=== PATIENT | female | born 1985 | race Caucasian/White ===

== ENCOUNTER 2023-07-26 05:43 | Emergency (ER) | payer MEDICARE, OTHER, SELFPAY ==
[2023-07-26 05:45] VITALS: BP 140/96
[2023-07-26 06:17] VITALS: BMI 26.3
--- NOTE | 2023-07-26 07:30 | ED.GENMED ---
History of Present Illness
General
Chief Complaint: Abdominal Symptoms
Source: patient
Exam Limitations: none
Time Seen by Provider: 07/26/23 06:58
Travel History
Have you had any contact with someone who has COVID-19?: No
Do you have any symptoms of coronavirus? Fever > 100 degrees, chills, cough, shortness of breath, sore throat, loss of taste or smell, muscle aches, or headache?: No
History of Present Illness
History of Present Illness:
37-year-old female who presents with epigastric abdominal pain. The patient states that she has a history of which she was told was a mild gastroparesis. She had eaten dinner and then vomited last night around 9 PM. She states that is not
completely typical for her. That occasionally occurs. She admits that she then woke up in [place] with burning epigastric pain. She states it is nothing like she is ever felt before. She does have a history of migraines. Patient states it
feels like there is hot lava dripping down her insides. No further nausea or vomiting. No diarrhea. No melena or hematochezia. Does have IBS and reports that she often has both constipation and diarrhea off-and-on
Past History
Past History
ED Past Medical History: Asthma, Cancer (Cervical CA), Fibromyalgia, Psychiatric (Anxiety, Depression) and Other (Gallstones, UTI, Kidney stones , Splenomegaly, Ulcers, Williamson, Pancreatitis, Diana syndrome, migraines, gastroparesis)
ED Past Surgical History: Cholecystectomy, Orthopedic (Carpal tunnel, Shoulder surgery) and Other (Hernia repair)
Social History
Tobacco: Non-smoker
Alcohol: Occasional
Drug: None
Personal:
Living: with family
Employment: Employed
Family History
Family History: Negative Early CAD, CAD or Sudden
Phy Exam
Physical Exam
Physical Exam:
CONSTITUTIONAL Patient alert and oriented to person, place and time. Well-appearing. Vital signs reviewed.
HEAD atraumatic, normocephalic.
EYES eyelids normal to inspection, Pupils equally round and reactive to light, Extraocular muscles intact, Conjunctiva normal, Sclera normal.
NECK normal range of motion, Trachea midline, no jugular venous distention.
RESPIRATORY CHEST No respiratory distress noted, Chest expansion equal, Bilateral breath sounds clear.
CARDIOVASCULAR regular rate and rhythm, Heart sounds normal.
ABDOMEN moderate epigastric tenderness, bowel sounds normal. No distention.
BACK normal inspection, no obvious deformities
UPPER EXTREMITY range of motion normal, Motor strength normal, no cyanosis, no edema.
LOWER EXTREMITY range of motion normal, Motor strength normal, no cyanosis, no edema.
NEURO Speech normal, No focal motor deficits, Olivia coma scale 15, Memory normal, Cranial Nerves intact to screening exam.
SKIN skin warm, dry, and normal in color.
PSYCHIATRIC patient oriented to person place and time, Normal affect.
Course
Orders/Labs/Results
Orders:
Orders
07/26/23 07:30
Pantoprazole [Protonix IV] 40 mg IV NOW STA
Sucralfate Suspension [Carafate Suspension] 1 gm PO NOW STA
Test Result ONCE
07/26/23 07:39
Complete Blood Count/With Diff Urgent
Comprehensive Metabolic Panel Urgent
HCG, Serum Qualitative Screen Urgent
Lipase Urgent
07/26/23 09:30
Morphine Sulfate 4 mg IV NOW STA
Ondansetron Injectable [Zofran] 4 mg IV NOW STA
Abnormal Lab Results
07/26/23
07:39
RBC 4.09 L 10^6/uL
(4.20-5.40)
Hct 35.4 L %
(37.0-47.0)
MCH 32.3 H pg
(27.0-31.0)
MCHC 37.3 H g/dL
(33.0-37.0)
RDW 14.6 H %
(11.5-14.5)
Chloride 110 H mmol/L
(98-107)
Total Bilirubin 2.0 H mg/dl
(0.2-1.3)
07/26/23 07:39
07/26/23 07:39
Vital Signs
Initial and Last Documented VS:
Initial Vital Signs
Temp Pulse Resp BP Pulse Ox
98.2 F 90 22 140/96 100
07/26/23 05:45 07/26/23 05:45 07/26/23 05:45 07/26/23 05:45 07/26/23 05:45
Last Documented Vital Signs
Temp Pulse Resp BP Pulse Ox
98.2 F 84 18 109/61 100
07/26/23 05:45 07/26/23 08:45 07/26/23 08:45 07/26/23 08:45 07/26/23 08:45
MDM/Problems Addressed
Differential Diagnosis Includes:
Duodenitis, pancreatitis, gastritis
MDM/Problems Addressed:
Epigastric abdominal pain
*Pulse Oximetry
Patient hypoxic: no
*Clinical Implementation Specialist Interpretation
Rate: normal
Interpretation: normal
Rhythm: sinus
*Critical Care Note
Total Time (30-74mins, 75-104mins- exclusive of procedures): Not Applicable
Data Reviewed
Further Testing Considered But Not Given:
Consider CT imaging but abdomen benign
Patient Management
Escalation/DeEscalation of care consider admission/obs:
On reevaluation patient feels a little bit better. Still little bit discomfort. Gastritis as labs are reassuring and abdomen is quite benign on exam do not feel CT imaging is warranted. Will provide PPI twice daily and Carafate. Also recommended
clear liquid diet for the next 24 hours
ED Attending Note
-
Portions of this chart may have been created with voice recognition software.� Occasional wrong word or��sound alike� substitutions may have occurred due to the inherent limitations of voice recognition software.
Discharge Plan
Departure
Patient Disposition: Home (Routine Discharge)
Date of Disposition: 07/26/23
Time of Disposition: 09:32
Patient with high blood pressure during this ER visit?: No
Discharge Problem:
Abdominal pain, epigastric, Gastritis
Instructions: Gastritis, Clear Liquid Diet, Abdominal Pain
Prescriptions:
New
pantoprazole [Protonix] 40 mg tablet,delayed release (DR/EC)
40 mg PO BID Qty: 60 0RF
Rx Instructions:
Please take 30 minutes prior to eating or drinking anything in the morning.
sucralfate [Carafate] 100 mg/mL suspension
10 ml PO QID Qty: 400 0RF
No Action
oxycodone 5 MG tablet
5 mg PO Q6HPRN PRN (Reason: severe pain) 4 Days Qty: 12 0RF
Referrals:
Jaye Mohamud MD [Family Provider] -
Activity Restrictions/Additional Instructions:
Please stick to a bland diet as discussed. Please see your doctor in the next 3 to 5 days for follow-up and reevaluation. If symptoms persist, follow-up with a sprinkler installer and possible endoscopy may be necessary. Return immediately for
intractable vomiting, fevers, vomiting blood, worsening pain or any other concerns.
Interventions
Interventions:
*Risk Screen - Suicide Last Done: 07/26/23 05:45
*General Assessment Last Done: 07/26/23 07:33
*Neglect/Abuse Screening Last Done: 07/26/23 05:45
ED- Fall Risk Assessment Last Done: 07/26/23 06:17
*ED COVID-19 Vaccine History Last Done: 07/26/23 07:33
BO-Gagbtp-Sfogihdhtg Assessment Last Done: 07/26/23 06:17
[2023-07-26] MEDS: CARAFATE SUSPENSION 1 GM PO (07:37)
[2023-07-26] MEDS: PROTONIX IV 40 MG IV (07:38)
[2023-07-26 07:46] VITALS: BP 106/77
[2023-07-26 07:50] LABS: % Basophils 0.6 % (0-2); % Eosinophils 1.8 % (0-6); % Immature Granulocytes 0.3 % (0-0.5); % Monocytes 6.3 % (1.7-9.3); Absolute Eosinophils 0.1 10^3/uL (0-0.7); Absolute Lymphocytes 1.5 10^3/uL (1.2-3.4); Absolute Monocytes 0.4 10^3/uL (0.1-0.6); Absolute Neutrophils 4.7 10^3/uL (1.4-6.5); Hematocrit 35.4 % (37.0-47.0); Hemoglobin 13.2 g/dL (12.0-16.0); Mean Corp Hgb Conc. 37.3 g/dL (33.0-37.0); Mean Corpuscular Hgb 32.3 pg (27.0-31.0); Mean Corpuscular Volume 86.6 fL (81.0-99.0); Mean Platelet Volume 10.2 fL (7.4-10.4); Nucleated Red Blood Cells % 0 %; Platelet Count 187 10^3/uL (130-400); Red Blood Cell Count 4.09 10^6/uL (4.20-5.40); Red Cell Dist. Width 14.6 % (11.5-14.5); White Blood Cell Count 6.8 10^3/uL (4.8-10.8)
[2023-07-26 07:58] LABS: HCG, Serum Qualitative Screen Negative
[2023-07-26 08:01] LABS: ALT (SGPT) 18 U/L (0-35); AST (SGOT) 22 U/L (14-36); Albumin 4.4 g/dl (3.5-5.0); Alkaline Phosphatase 55 U/L (38-126); Blood Urea Nitrogen 15 mg/dl (7-17); Calcium 8.9 mg/dl (8.4-10.2); Carbon Dioxide 22 mmol/L (22-30); Chloride 110 mmol/L (98-107); Estimated Creatinine Clearance 93 ml/min; Glucose 95 mg/dl (70-99); Lipase 135 U/L (23-300); Potassium 3.9 mmol/L (3.5-5.1); Sodium 136 mmol/L (135-145); Total Protein 6.8 g/dl (6.3-8.2); eGFR > 60.00
[2023-07-26 08:45] VITALS: BP 109/61
[2023-07-26] MEDS: ZOFRAN 4 MG IV (09:37)
[2023-07-26] MEDS: MORPHINE SULFATE 4 MG IV (09:38)
[2023-07-26 10:22] VITALS: BP 103/66
== END 2023-07-26 10:10 | disposition home or self-care (01) ==
LOC: EMR 05:43
PROVIDERS: EMERGENCY PHYSICIAN Emergency Medicine; FAMILY PHYSICIAN Emergency Medicine
DX: K29.70 Gastritis, unspecified, without bleeding (principal); R10.9 Unspecified abdominal pain; R10.13 Epigastric pain
CPT/HCPCS: 99284; 96374; 96375 ×2; 80053; 83690; 84703; 85025

== ENCOUNTER → 2023-09-03 13:17 | Outpatient (REF) | payer MEDICARE, OTHER, SELFPAY | LOC: HWRAD 13:17 | PROVIDERS: ATTENDING PHYSICIAN Obstetrics & Gynecology; FAMILY PHYSICIAN Emergency Medicine | DX: R10.2 Pelvic and perineal pain (principal) | CPT/HCPCS: 76830; 76856 ==

== ENCOUNTER → 2023-11-03 14:13 | Outpatient (REF) | payer MEDICARE, OTHER, SELFPAY | LOC: RAD 14:13 | PROVIDERS: ATTENDING PHYSICIAN Otolaryngology; FAMILY PHYSICIAN Emergency Medicine | DX: Q31.3 Laryngocele (principal) | CPT/HCPCS: 70491; Q9967 ==

== ENCOUNTER 2023-12-17 08:16 | Outpatient (RCR) | payer MEDICARE, OTHER, SELFPAY | END 2023-12-17 23:59 | disposition home or self-care (01) | LOC: RPT 08:16 | PROVIDERS: ATTENDING PHYSICIAN Obstetrics & Gynecology; FAMILY PHYSICIAN Emergency Medicine | DX: N30.10 Interstitial cystitis (chronic) without hematuria (principal); N39.3 Stress incontinence (female) (male); Z73.6 Limitation of activities due to disability; M62.81 Muscle weakness (generalized); R10.2 Pelvic and perineal pain; R27.8 Other lack of coordination | CPT/HCPCS: 97162; 97530 ==

== ENCOUNTER 2024-01-11 13:02 | Outpatient (RCR) | payer MEDICARE, OTHER, SELFPAY | END 2024-01-11 23:59 | disposition home or self-care (01) | LOC: RPT 13:02 | PROVIDERS: ATTENDING PHYSICIAN Obstetrics & Gynecology; FAMILY PHYSICIAN Emergency Medicine | DX: N30.10 Interstitial cystitis (chronic) without hematuria (principal); N39.3 Stress incontinence (female) (male); Z73.6 Limitation of activities due to disability | CPT/HCPCS: 97140; 97530 ==

== ENCOUNTER 2024-02-01 14:57 | Emergency (ER) | payer MEDICARE, OTHER, SELFPAY ==
[2024-02-01 14:59] VITALS: BP 128/86
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
[2024-02-01] MEDS: TORADOL 60 MG IM (15:37)
[2024-02-01] MEDS: VALIUM 5 MG PO (15:37)
[2024-02-01 16:45] VITALS: BP 118/92
--- NOTE | 2024-02-01 16:45 | EDRN ---
Reviewed discharge instructions with patient. Verbalized understanding. Ambulated with steady gait to the lobby.
== END 2024-02-01 16:45 | disposition home or self-care (01) ==
LOC: EMR 14:57
PROVIDERS: EMERGENCY PHYSICIAN Student in an Organized Health Care Education/Training Program; FAMILY PHYSICIAN Emergency Medicine
DX: M54.12 Radiculopathy, cervical region (principal); G43.909 Migraine, unspecified, not intractable, without status migrainosus; M79.7 Fibromyalgia; J45.909 Unspecified asthma, uncomplicated; F41.9 Anxiety disorder, unspecified; F32.A Depression, unspecified; E80.4 Gilbert syndrome; K31.84 Gastroparesis; Z85.41 Personal history of malignant neoplasm of cervix uteri; Z87.440 Personal history of urinary (tract) infections; Z87.442 Personal history of urinary calculi; Z90.49 Acquired absence of other specified parts of digestive tract
CPT/HCPCS: 99284; 96372; 72050

== ENCOUNTER 2024-02-22 13:06 | Outpatient (RCR) | payer MEDICARE, OTHER, SELFPAY | END 2024-02-22 23:59 | disposition home or self-care (01) | LOC: RPT 13:06 | PROVIDERS: ATTENDING PHYSICIAN Obstetrics & Gynecology; FAMILY PHYSICIAN Emergency Medicine | DX: N39.3 Stress incontinence (female) (male) (principal) | CPT/HCPCS: 97140; 97530 ==

== ENCOUNTER 2024-03-11 16:45 | Emergency (ER) | payer MEDICARE, OTHER, SELFPAY ==
[2024-03-11 16:49] VITALS: BP 146/108
[2024-03-11 20:07] VITALS: BP 113/75
[2024-03-11 20:26] VITALS: BMI 27.2
--- NOTE | 2024-03-11 20:41 | ED.GENMED ---
History of Present Illness
General
Chief Complaint: Nasal Problem
Source: patient
Exam Limitations: none
Time Seen by Provider: 03/11/24 20:30
History of Present Illness
History of Present Illness:
This is a 38 year old female that comes in with c/o feeling like she has a sinus infection. States that her daughter was sick with bronchitis and she normally gets sick about 2 days after here. States that it has been 2 days and now she has pressure
behind her eyes and her head hurts. States that she feels that her sinus are full and that she has some post nasal drip. This is affecting her Asthma and her chest feels tight. States that she did just have a Septoplasty and she was going to call
the doctor but they had closed already. States that she has been hot and cold, chest tightness/SOB, and occasionally dizzy. Denies any fever, chills, chest pain, abd pain, nausea, vomiting, diarrhea, headache, urinary burning.
Past History
Past History
ED Past Medical History: Asthma, Cancer (Cervical CA), Fibromyalgia, Psychiatric (Anxiety, Depression) and Other (Gallstones, UTI, Kidney stones, UTI, Splenomegaly, Ulcers, Green, Pancreatitis, Paauilo syndrome, migraines, gastroparesis, Numbness
arms and legs, )
ED Past Surgical History: Cholecystectomy, Orthopedic (Carpal tunnel, Shoulder surgery) and Other (Hernia repair, Septoplasty)
Social History
Tobacco: Non-smoker
Alcohol: Occasional
Drug: None
Personal:
Living: with family
Employment: Employed
Family History
Family History: Negative Early CAD, CAD or Sudden
Review of Systems
Review of Systems
All Other Systems: ROS reviewed and negative except as documented in HPI and ROS
Constitutional: Reports other (Feels hot and cold); Denies fever or chills
EENT: Reports other (Sinus pressure)
Respiratory: Reports trouble breathing (Chest feels tight)
Cardiac: Reports no symptoms; Denies chest pain
ABD/GI: Reports no symptoms; Denies abdominal pain, nausea, vomiting or diarrhea
: Reports no symptoms; Denies dysuria, frequency or urgency
Musculoskeletal: Reports no symptoms
Skin: Reports no symptoms
Neurological: Reports dizzy (Occasional); Denies headache
Psychiatric: Reports no symptoms
Phy Exam
General Physical Exam
General Presentation: well appearing and no apparent distress
General age: appears stated age
General Skin: warm and dry
General Habitus: normal
General Mental: alert
General Hydration: appears well hydrated
ENT Exam
ENT Exam: TM's normal, pharynx normal, neck supple and other (Left septum suture noted)
Eye Exam
Eye Exam: EOMI
Cardiovascular Exam
Cardiovascular Exam: regular rate/rhythm, no edema, no murmur and normal peripheral pulses
Pulmonary Exam
Pulmonary Exam: lungs clear, no respiratory distress, no rales, chest non tender, no crackles, no rhonchi, no wheezing and no cough
Musculoskeletal Exam
Musculoskeletal Exam: full ROM and no edema
Skin Exam
Skin Exam: normal color, warm/dry, no rash and no petechia
Psychiatric Exam
Psychiatric Exam: normal mood/affect
Course
Orders/Labs/Results
Orders:
Orders
03/11/24 16:52
EKG [Electrocardiogram (*1)] Urgent
Reason for Study: Shortness of Breath
EKG- Treatment ONCE
03/11/24 20:40
Azithromycin [Zithromax] 500 mg PO NOW STA
03/11/24 20:40
Prednisone [Deltasone] 40 mg PO NOW STA
Vital Signs
Initial and Last Documented VS:
Initial Vital Signs
Temp Pulse Resp BP Pulse Ox
98.0 F 89 17 146/108 97
03/11/24 16:49 03/11/24 16:49 03/11/24 16:49 03/11/24 16:49 03/11/24 16:49
Last Documented Vital Signs
Temp Pulse Resp BP Pulse Ox
97.9 F 82 17 113/75 98
03/11/24 20:07 03/11/24 20:07 03/11/24 16:49 03/11/24 20:07 03/11/24 20:07
MDM/Problems Addressed
Differential Diagnosis Includes:
Sinus infection, Asthma
MDM/Problems Addressed:
This is a 38 year old female that comes in with c/o feeling like she has a sinus infection. States that she has some post nasal drip and pressure behind her eyes. States that she always gets sick 2 days after her daughter is sick and she has
Bronchitis.
Explained to patient that her Lungs are clear. State that she just feels tight. Will place patient on Zithromax and give her steroids for 3 days. Patient to call the surgeon who did the septoplasty for follow up. Will discharge home.
Chronic conditions affecting care: Asthma
Acute Exacerbation and/or Progression of Chronic Illness: Asthma
*Pulse Oximetry
Patient hypoxic: no
*EKG
Interpreted by ED Provider?: NA
Rate: EKG- N/A
*Bargeman Interpretation
Rate: Bargeman- N/A
*Critical Care Note
Total Time (30-74mins, 75-104mins- exclusive of procedures): Not Applicable
ED Attending Note
-
Portions of this chart may have been created with voice recognition software.� Occasional wrong word or��sound alike� substitutions may have occurred due to the inherent limitations of voice recognition software.
Discharge Plan
Departure
Patient Disposition: Home (Routine Discharge)
Date of Disposition: 03/11/24
Time of Disposition: 20:50
Patient with high blood pressure during this ER visit?: No
Condition: Good
Covid-19: Not Applicable
Discharge Problem:
Sinusitis, Asthma
Instructions: Asthma, Adult ED, Sinusitis, Adult ED
Prescriptions:
New
prednisone 20 mg tablet
40 mg PO DAILY Qty: 6 0RF
azithromycin [Zithromax] 250 mg tablet
250 mg PO DAILY Qty: 4 0RF
No Action
oxycodone 5 MG tablet
5 mg PO Q6HPRN PRN (Reason: severe pain) 4 Days Qty: 12 0RF
pantoprazole [Protonix] 40 mg tablet,delayed release (DR/EC)
40 mg PO BID Qty: 60 0RF
Rx Instructions:
Please take 30 minutes prior to eating or drinking anything in the morning.
sucralfate [Carafate] 100 mg/mL suspension
10 ml PO QID Qty: 400 0RF
methylprednisolone [Medrol (Delfino)] 4 mg tablets,dose pack
4 mg PO DIRECTED Qty: 21 0RF
diazepam [Valium] 5 mg tablet
5 mg PO BID PRN (Reason: muscle spasm) Qty: 8 0RF
Referrals:
Jaye Mohamud MD [Family Provider] -
Activity Restrictions/Additional Instructions:
As discussed, your lungs are clear at this time. You may use your inhaler [id number] as needed. You have had 2 prescription sent to your Pharmacy. The first is Zithromax 250mg for the next 4 days as you have been given your first dose here. The second
is for Prednisone for the next 3 days. Please take as directed. Follow up with the ENT specialist that did your surgery. IF YOU HAVE ANY OTHER CONCERNS PLEASE RETURN TO THE EMERGENCY ROOM.
Interventions
Interventions:
*Risk Screen - Suicide Last Done: 03/11/24 16:49
*General Assessment Last Done: 03/11/24 20:26
*Neglect/Abuse Screening Last Done: 03/11/24 20:26
ED- Fall Risk Assessment Last Done: 03/11/24 20:26
*ED COVID-19 Vaccine History Last Done: 03/11/24 20:26
ED-EENT Assessment Last Done: 03/11/24 20:28
Discharge Date and Time
Print Language: ARMENIAN
[2024-03-11] MEDS: DELTASONE 40 MG PO (20:49)
[2024-03-11] MEDS: ZITHROMAX 500 MG PO (20:50)
[2024-03-11 20:52] VITALS: BP 126/78
== END 2024-03-11 21:01 | disposition home or self-care (01) ==
LOC: EMR 16:45
PROVIDERS: EMERGENCY PHYSICIAN Emergency Medicine; FAMILY PHYSICIAN Emergency Medicine
DX: J32.9 Chronic sinusitis, unspecified (principal); J45.909 Unspecified asthma, uncomplicated
CPT/HCPCS: 99283; 93005

== ENCOUNTER 2024-03-21 13:08 | Outpatient (RCR) | payer MEDICARE, OTHER, SELFPAY | END 2024-03-21 23:59 | disposition home or self-care (01) | LOC: RPT 13:08 | PROVIDERS: ATTENDING PHYSICIAN Obstetrics & Gynecology; FAMILY PHYSICIAN Emergency Medicine | DX: N30.10 Interstitial cystitis (chronic) without hematuria (principal); N39.3 Stress incontinence (female) (male); M62.81 Muscle weakness (generalized); R10.2 Pelvic and perineal pain; R27.8 Other lack of coordination; Z73.6 Limitation of activities due to disability | CPT/HCPCS: 97140; 97530 ==

== ENCOUNTER 2024-04-11 13:06 | Outpatient (RCR) | payer MEDICARE, OTHER, SELFPAY | END 2024-04-11 23:59 | disposition home or self-care (01) | LOC: RPT 13:06 | PROVIDERS: ATTENDING PHYSICIAN Obstetrics & Gynecology; FAMILY PHYSICIAN Emergency Medicine | DX: N30.10 Interstitial cystitis (chronic) without hematuria (principal); N39.3 Stress incontinence (female) (male); Z73.6 Limitation of activities due to disability; M62.81 Muscle weakness (generalized); R10.2 Pelvic and perineal pain; R27.8 Other lack of coordination | CPT/HCPCS: 97140; 97530 ==

== ENCOUNTER 2024-04-18 13:03 | Outpatient (RCR) | payer MEDICARE, OTHER, SELFPAY | END 2024-04-18 23:59 | disposition home or self-care (01) | LOC: RST 13:03 | PROVIDERS: ATTENDING PHYSICIAN Otolaryngology; FAMILY PHYSICIAN Emergency Medicine | DX: M62.89 Other specified disorders of muscle (principal); K21.9 Gastro-esophageal reflux disease without esophagitis; R49.0 Dysphonia | CPT/HCPCS: 92507; 92524 ==

== ENCOUNTER 2024-04-29 16:56 | Outpatient (RCR) | payer MEDICARE, OTHER, SELFPAY | END 2024-04-29 23:59 | disposition home or self-care (01) | LOC: RST 16:56 | PROVIDERS: ATTENDING PHYSICIAN Otolaryngology; FAMILY PHYSICIAN Emergency Medicine | DX: M62.89 Other specified disorders of muscle (principal); K21.9 Gastro-esophageal reflux disease without esophagitis; R49.0 Dysphonia | CPT/HCPCS: 92507 ==

== ENCOUNTER → 2024-05-03 12:00 | Outpatient (REF) | payer MEDICARE, OTHER, SELFPAY | LOC: DHSLP 12:00 | PROVIDERS: ATTENDING PHYSICIAN Internal Medicine Critical Care Medicine; FAMILY PHYSICIAN Emergency Medicine | DX: G47.33 Obstructive sleep apnea (adult) (pediatric) (principal); R06.83 Snoring | CPT/HCPCS: 95800 ==

== ENCOUNTER 2024-05-09 13:03 | Outpatient (RCR) | payer MEDICARE, OTHER, SELFPAY | END 2024-05-09 23:59 | disposition home or self-care (01) | LOC: RPT 13:03 | PROVIDERS: ATTENDING PHYSICIAN Obstetrics & Gynecology; FAMILY PHYSICIAN Emergency Medicine | DX: N30.10 Interstitial cystitis (chronic) without hematuria (principal); N39.3 Stress incontinence (female) (male); Z73.6 Limitation of activities due to disability; M62.81 Muscle weakness (generalized); R10.2 Pelvic and perineal pain; R27.8 Other lack of coordination | CPT/HCPCS: 97140; 97530 ==

== ENCOUNTER 2024-06-22 11:21 | Outpatient (RCR) | payer MEDICARE, OTHER, SELFPAY | END 2024-06-22 23:59 | disposition home or self-care (01) | LOC: RST 11:21 | PROVIDERS: ATTENDING PHYSICIAN Otolaryngology; FAMILY PHYSICIAN Emergency Medicine | DX: M62.89 Other specified disorders of muscle; R49.0 Dysphonia; K21.9 Gastro-esophageal reflux disease without esophagitis | CPT/HCPCS: 92507 ==

== ENCOUNTER 2024-06-24 06:13 | Outpatient (RCR) | payer MEDICARE, OTHER, SELFPAY | END 2024-06-24 23:59 | disposition home or self-care (01) | LOC: RPT 06:13 | PROVIDERS: ATTENDING PHYSICIAN Obstetrics & Gynecology; FAMILY PHYSICIAN Emergency Medicine | DX: N30.10 Interstitial cystitis (chronic) without hematuria (principal); N39.3 Stress incontinence (female) (male); Z73.6 Limitation of activities due to disability; M62.81 Muscle weakness (generalized); R10.2 Pelvic and perineal pain; R27.8 Other lack of coordination | CPT/HCPCS: 97140; 97530 ==

== ENCOUNTER 2024-07-14 10:39 | Outpatient (RCR) | payer MEDICARE, OTHER, SELFPAY | END 2024-07-14 23:59 | disposition home or self-care (01) | LOC: RPT 10:39 | PROVIDERS: ATTENDING PHYSICIAN Obstetrics & Gynecology; FAMILY PHYSICIAN Emergency Medicine | DX: N30.10 Interstitial cystitis (chronic) without hematuria (principal); N39.3 Stress incontinence (female) (male); Z73.6 Limitation of activities due to disability; M62.81 Muscle weakness (generalized); R10.2 Pelvic and perineal pain; R27.8 Other lack of coordination | CPT/HCPCS: 97140; 97530 ==

== ENCOUNTER 2024-07-14 10:52 | Outpatient (RCR) | payer MEDICARE, OTHER, SELFPAY | END 2024-07-14 23:59 | disposition home or self-care (01) | LOC: RST 10:52 | PROVIDERS: ATTENDING PHYSICIAN Otolaryngology; FAMILY PHYSICIAN Emergency Medicine | DX: R49.0 Dysphonia (principal); M62.89 Other specified disorders of muscle; K21.9 Gastro-esophageal reflux disease without esophagitis | CPT/HCPCS: 92507 ==

== ENCOUNTER 2024-08-01 13:02 | Outpatient (RCR) | payer MEDICARE, OTHER, SELFPAY | END 2024-08-01 23:59 | disposition home or self-care (01) | LOC: RPT 13:02 | PROVIDERS: ATTENDING PHYSICIAN Obstetrics & Gynecology; FAMILY PHYSICIAN Emergency Medicine | DX: N30.10 Interstitial cystitis (chronic) without hematuria (principal); N39.3 Stress incontinence (female) (male); Z73.6 Limitation of activities due to disability; M62.81 Muscle weakness (generalized); R10.2 Pelvic and perineal pain; R27.8 Other lack of coordination | CPT/HCPCS: 97110; 97140; 97530 ==

== ENCOUNTER 2024-09-12 13:07 | Outpatient (RCR) | payer MEDICARE, OTHER, SELFPAY | END 2024-09-12 23:59 | disposition home or self-care (01) | LOC: RPT 13:07 | PROVIDERS: ATTENDING PHYSICIAN Obstetrics & Gynecology; FAMILY PHYSICIAN Emergency Medicine | DX: N30.10 Interstitial cystitis (chronic) without hematuria (principal); N39.3 Stress incontinence (female) (male); Z73.6 Limitation of activities due to disability; M62.81 Muscle weakness (generalized); R10.2 Pelvic and perineal pain; R27.8 Other lack of coordination | CPT/HCPCS: 97014; 97110; 97140; 97530 ==

== ENCOUNTER 2024-09-15 17:14 | Emergency (ER) | payer MEDICARE, OTHER, SELFPAY ==
[2024-09-15 17:32] VITALS: BP 135/98
--- NOTE | 2024-09-15 17:38 | ED.GENMED ---
History of Present Illness
General
Chief Complaint: Headache
Time Seen by Provider: 09/15/24 17:38
History of Present Illness
History of Present Illness:
TIME OF INITIAL ENCOUNTER: 5:40 PM
HPI: Patient presents with migraine type of headache. This is associated with photophobia and phonophobia. She has associated with nausea. This started yesterday morning and symptoms persist despite taking Relafen. She had been using Botox which
had been helping in the past. She denies any other neurologic symptoms.
EXAM:
GENERAL: Appears photophobic and somewhat uncomfortable
HEENT: Moist oral mucosa
CARDIOVASCULAR: No murmurs, borderline tachycardic heart rate, regular rhythm, No chest wall tenderness
PULMONARY: No respiratory distress, breath sounds are clear and equal
ABDOMEN: Soft with no peritoneal signs, no tenderness
NEUROLOGIC: Excellent strength all extremities, no coordination deficits
PSYCHIATRIC: Appropriate mental status, normal insight and judgement
EXTREMITIES: Nontender, no edema, moves all extremities equally
SKIN: No rash, no lesions
NUMBER AND COMPLEXITY OF PROBLEMS ADDRESSED AT THE ENCOUNTER
� Chronic conditions affecting care: Migraines, asthma, GERD, cervical cancer, anxiety/depression
� Acute Exacerbation and/or Progression of Chronic Illness: This is an acute but recurring problem
� Differential Diagnosis includes: Exacerbation of migraine, highly doubt serious intracranial pathology, tension headache
AMOUNT AND/OR COMPLEXITY OF DATA TO BE REVIEWED AND ANALYZED
� I performed an independent evaluation of and my interpretation is:
EKG:
CT:
X-rays:
Laboratory Studies:
Other:
� Review of other/old records: I reviewed records, she has had other ED visits but has not been in the emergency department since 2018 related to a migraine visit
� Clinical information was obtained by an independent historian: I spoke to the at bedside
� Prescriptions/Medications Considered but not given:
� Further testing considered but not performed: Labs and imaging not indicated at this time
RISK OF COMPLICATIONS AND/OR MORBIDITY OR MORTALITY OF PATIENT MANAGEMENT
� Social determinants of health affecting care: Lives at home with family
� Discussion with other providers:
� Escalation of care including admission/observation vs risk of discharge considered: The patient was given Reglan with Benadryl along with Toradol and fluids.
ANY OTHER UPDATES:
6:45 PM: I reassessed the patient and she feels improved and comfortable with going home after meds given.
Past History
Past History
ED Past Medical History: Asthma, Cancer (Cervical CA), Fibromyalgia, Psychiatric (Anxiety, Depression) and Other (Gallstones, UTI, Kidney stones, UTI, Splenomegaly, Ulcers, [place], Pancreatitis, [place] syndrome, migraines, gastroparesis, Numbness
arms and legs, )
ED Past Surgical History: Cholecystectomy, Orthopedic (Carpal tunnel, Shoulder surgery) and Other (Hernia repair, Septoplasty)
Social History
Tobacco: Non-smoker
Alcohol: Occasional
Drug: None
Personal:
Living: with family
Employment: Employed
Family History
Family History: Negative Early CAD, CAD or Sudden
Phy Exam
Physical Exam
Physical Exam:
See HPI
Course
Orders/Labs/Results
Orders:
Orders
09/15/24 17:48
0.9% Sodium Chloride 1000 ml [Nss] 1,000 ml IV BOLUS
Diphenhydramine [Benadryl] 25 mg IV NOW STA
Ketorolac [Toradol] 15 mg IV NOW STA
Metoclopramide [Reglan] 10 mg IM NOW STA
09/15/24 18:10
Metoclopramide [Reglan] 10 mg IV NOW STA
Vital Signs
Initial and Last Documented VS:
Initial Vital Signs
Temp Pulse Resp BP Pulse Ox
36.9 C 114 18 135/98 98
09/15/24 17:32 09/15/24 17:32 09/15/24 17:32 09/15/24 17:32 09/15/24 17:32
Last Documented Vital Signs
Temp Pulse Resp BP Pulse Ox
36.9 C 114 18 135/98 98
09/15/24 17:32 09/15/24 17:32 09/15/24 17:32 09/15/24 17:32 09/15/24 17:32
*Critical Care Note
Total Time (30-74mins, 75-104mins- exclusive of procedures): Not Applicable
ED Attending Note
-
Portions of this chart may have been created with voice recognition software.� Occasional wrong word or��sound alike� substitutions may have occurred due to the inherent limitations of voice recognition software.
Discharge Plan
Departure
Patient Disposition: Home (Routine Discharge)
Date of Disposition: 09/15/24
Time of Disposition: 18:52
Patient with high blood pressure during this ER visit?: Yes
Discharge Problem:
Migraine
Instructions: Migraines (DC), BLOOD PRESSURE
Prescriptions:
No Action
oxycodone 5 MG tablet
5 mg PO Q6HPRN PRN (Reason: severe pain) 4 Days Qty: 12 0RF
pantoprazole [Protonix] 40 mg tablet,delayed release (DR/EC)
40 mg PO BID Qty: 60 0RF
Rx Instructions:
Please take 30 minutes prior to eating or drinking anything in the morning.
sucralfate [Carafate] 100 mg/mL suspension
10 ml PO QID Qty: 400 0RF
methylprednisolone [Medrol (Delfino)] 4 mg tablets,dose pack
4 mg PO DIRECTED Qty: 21 0RF
diazepam [Valium] 5 mg tablet
5 mg PO BID PRN (Reason: muscle spasm) Qty: 8 0RF
prednisone 20 mg tablet
40 mg PO DAILY Qty: 6 0RF
azithromycin [Zithromax] 250 mg tablet
250 mg PO DAILY Qty: 4 0RF
Activity Restrictions/Additional Instructions:
We gave you Reglan with Benadryl along with Toradol. I recommend no driving tonight. Follow-up with your primary care doctor. Return here if worse or other concerns.
Interventions
Interventions:
*Risk Screen - Suicide Last Done: 09/15/24 18:10
*General Assessment Last Done: 09/15/24 18:10
*Neglect/Abuse Screening Last Done: 09/15/24 18:10
*ED COVID-19 Vaccine History Last Done: 09/15/24 17:32
ED- Neurological Assessment Last Done: 09/15/24 18:10
Discharge Date and Time
Print Language: RWANDAN
[2024-09-15] MEDS: NSS 1000 IV (18:06)
[2024-09-15] MEDS: BENADRYL 25 MG IV (18:07)
[2024-09-15] MEDS: TORADOL 15 MG IV (18:09)
[2024-09-15] MEDS: REGLAN 10 MG IV (18:11)
== END 2024-09-15 19:03 | disposition home or self-care (01) ==
LOC: EMR 17:14
PROVIDERS: EMERGENCY PHYSICIAN Emergency Medicine; FAMILY PHYSICIAN Emergency Medicine
DX: G43.909 Migraine, unspecified, not intractable, without status migrainosus (principal); J45.909 Unspecified asthma, uncomplicated; M79.7 Fibromyalgia; F41.9 Anxiety disorder, unspecified; Z85.41 Personal history of malignant neoplasm of cervix uteri; Z90.49 Acquired absence of other specified parts of digestive tract
CPT/HCPCS: 99282; 96374; 96375; 96372; 96361

== ENCOUNTER 2024-10-07 13:01 | Outpatient (RCR) | payer MEDICARE, OTHER, SELFPAY | END 2024-10-07 23:59 | disposition home or self-care (01) | LOC: RPT 13:01 | PROVIDERS: ATTENDING PHYSICIAN Obstetrics & Gynecology; FAMILY PHYSICIAN Emergency Medicine | DX: N30.10 Interstitial cystitis (chronic) without hematuria (principal); N39.3 Stress incontinence (female) (male); Z73.6 Limitation of activities due to disability; M62.81 Muscle weakness (generalized); R10.2 Pelvic and perineal pain; R27.8 Other lack of coordination | CPT/HCPCS: 97110; 97140 ==

== ENCOUNTER 2024-11-07 13:13 | Outpatient (RCR) | payer MEDICARE, OTHER, SELFPAY | END 2024-11-07 23:59 | disposition home or self-care (01) | LOC: RPT 13:13 | PROVIDERS: ATTENDING PHYSICIAN Obstetrics & Gynecology; FAMILY PHYSICIAN Emergency Medicine | DX: N30.10 Interstitial cystitis (chronic) without hematuria (principal); N39.3 Stress incontinence (female) (male); Z73.6 Limitation of activities due to disability; M62.81 Muscle weakness (generalized); R10.2 Pelvic and perineal pain; R27.8 Other lack of coordination | CPT/HCPCS: 97110; 97140; 97530 ==

== ENCOUNTER 2024-12-15 11:24 | Outpatient (RCR) | payer MEDICARE, OTHER, SELFPAY | END 2024-12-15 23:59 | disposition home or self-care (01) | LOC: RPT 11:24 | PROVIDERS: ATTENDING PHYSICIAN Obstetrics & Gynecology; FAMILY PHYSICIAN Emergency Medicine | DX: N30.10 Interstitial cystitis (chronic) without hematuria (principal); N39.3 Stress incontinence (female) (male); Z73.6 Limitation of activities due to disability; M62.81 Muscle weakness (generalized); R10.2 Pelvic and perineal pain; R27.8 Other lack of coordination | CPT/HCPCS: 97110; 97140; 97530 ==

== ENCOUNTER 2025-01-16 14:03 | Outpatient (RCR) | payer MEDICARE, OTHER, SELFPAY | END 2025-01-16 23:59 | disposition home or self-care (01) | LOC: RPT 14:03 | PROVIDERS: ATTENDING PHYSICIAN Obstetrics & Gynecology; FAMILY PHYSICIAN Emergency Medicine | DX: N30.10 Interstitial cystitis (chronic) without hematuria (principal); N39.3 Stress incontinence (female) (male); Z73.6 Limitation of activities due to disability; M62.81 Muscle weakness (generalized); R10.2 Pelvic and perineal pain; R27.8 Other lack of coordination | CPT/HCPCS: 97110; 97140; 97530 ==

== ENCOUNTER 2025-02-10 11:25 | Outpatient (RCR) | payer MEDICARE, SELFPAY | END 2025-02-10 23:59 | disposition home or self-care (01) | LOC: RPT 11:25 | PROVIDERS: ATTENDING PHYSICIAN Obstetrics & Gynecology; FAMILY PHYSICIAN Emergency Medicine | DX: N30.10 Interstitial cystitis (chronic) without hematuria (principal); N39.3 Stress incontinence (female) (male); Z73.6 Limitation of activities due to disability; M62.81 Muscle weakness (generalized); R10.2 Pelvic and perineal pain; R27.8 Other lack of coordination | CPT/HCPCS: 97110; 97140; 97530 ==

== ENCOUNTER 2025-04-05 19:22 | Emergency (ER) | payer MEDICARE, SELFPAY ==
[2025-04-05 19:25] VITALS: BP 116/83
[2025-04-05 21:57] VITALS: BMI 23.2
[2025-04-05 22:00] VITALS: BP 101/76
[2025-04-05 23:00] VITALS: BP 97/71
[2025-04-05] MEDS: NSS 1000 IV (23:08)
[2025-04-05] MEDS: BENADRYL 50 MG IV (23:09)
[2025-04-05] MEDS: TORADOL 30 MG IV (23:10)
[2025-04-05] MEDS: REGLAN 10 MG IV (23:10)
--- NOTE | 2025-04-05 23:19 | ED.GENMED ---
History of Present Illness
General
Chief Complaint: Headache
Source: patient
Time Seen by Provider: 04/05/25 22:27
History of Present Illness
History of Present Illness:
39-year-old female with past medical history of frequent migraines, previous cervical cancer presenting to the emergency department for evaluation of an exacerbation of her chronic migraines, no relief with Benadryl, nabumetone and her recent Botox
injections. Patient has needed to come to the emergency department for migraines in the past and usually notes relief with migraine cocktail. She reports quite frequent headaches and today's is not much different than usual. Denies any fevers,
diplopia, focal weakness or numbness or any other concerns.
Past History
Past History
ED Past Medical History: Asthma, Cancer (Cervical CA), Fibromyalgia, Psychiatric (Anxiety, Depression) and Other (Gallstones, UTI, Kidney stones, UTI, Splenomegaly, Ulcers, [place], Pancreatitis, [place] syndrome, migraines, gastroparesis, Numbness
arms and legs, )
ED Past Surgical History: Cholecystectomy, Orthopedic (Carpal tunnel, Shoulder surgery) and Other (Hernia repair, Septoplasty)
Social History
Tobacco: Non-smoker
Alcohol: Occasional
Drug: None
Personal:
Living: with family
Employment: Employed
Family History
Family History: Negative Early CAD, CAD or Sudden
Review of Systems
Review of Systems
All Other Systems: ROS reviewed and negative except as documented in HPI and ROS
Phy Exam
Physical Exam
Physical Exam:
GENERAL: Alert , in no apparent distress, sitting in a dark room, eye darkening held over her eyes
HEAD: Normocephalic atraumatic
EYE: conjunctiva clear, pupils 4 mm bilateral
NECK: Supple, No meningismus
ENT: o/p clr, mmm.
CARDIAC: Regular rate and rhythm
LUNGS: Clear breath sounds bilaterally, no acute respiratory distress, no wheezes/rales/rhonchi
NEUROLOGICAL: Alert and oriented
SKIN: Warm and dry, skin intact.
MUSCULOSKELETAL: well perfused.
PSYCH: Normal and appropriate interaction.
Scores
Heart Failure Risk
Heart Failure Risk Score: Not Applicable
Heart Score for Chest Pain Patients
STEMI patient?: Not applicable
Withdrawal Assessment of Alcohol
Withdrawal Assessment Completed?: Not applicable
Course
Orders/Labs/Results
Orders:
Orders
04/05/25 22:43
0.9% Sodium Chloride 1000 ml [Nss] 1,000 ml IV BOLUS
Diphenhydramine [Benadryl] 50 mg IV NOW STA
Ketorolac [Toradol] 30 mg IV NOW STA
Metoclopramide [Reglan] 10 mg IV NOW STA
Vital Signs
Initial and Last Documented VS:
Initial Vital Signs
Temp Pulse Resp BP Pulse Ox
97.9 F 108 16 116/83 100
04/05/25 19:25 04/05/25 19:25 04/05/25 19:25 04/05/25 19:25 04/05/25 19:25
Last Documented Vital Signs
Temp Pulse Resp BP Pulse Ox
98.1 F 108 16 91/67 98
04/05/25 22:17 04/05/25 19:25 04/05/25 19:25 04/06/25 00:15 04/06/25 00:15
MDM/Problems Addressed
Differential Diagnosis Includes:
Migraine headache
Tension Headache
ICH
Pseudotumor
Medication side effects
MDM/Problems Addressed:
39-year-old female presenting to the ER for evaluation of an acute on chronic migraine she did take some Benadryl earlier in addition to her usual migraine medications but without any relief. She notes she has been on multiple different medications
in the past but with minimal success as well as side effects. Based off record review patient was seen in this emergency department in August of this year and treated with Reglan, Benadryl and Toradol as well as IV fluids with good success. Will
repeat this treatment tonight. Will reevaluate with disposition pending.
Chronic conditions affecting care: Neurological disorder
Acute Exacerbation and/or Progression of Chronic Illness: Neurological disorder
*Pulse Oximetry
SaO2: 99
Oxygen Mode of Delivery: Room air
Patient hypoxic: no
*Critical Care Note
Total Time (30-74mins, 75-104mins- exclusive of procedures): Not Applicable
Data Reviewed
Review of Other/Old Records Reveals: Labs and Records
Patient Management
Escalation/DeEscalation of care consider admission/obs:
Patient reports significant relief of symptoms following medication and would like to be discharged home. Has close follow up scheduled with her primary team. Aware of return precautions to the ER
ED Attending Note
-
Portions of this chart may have been created with voice recognition software.� Occasional wrong word or��sound alike� substitutions may have occurred due to the inherent limitations of voice recognition software.
Discharge Plan
Departure
Patient Disposition: Home (Routine Discharge)
Date of Disposition: 04/06/25
Time of Disposition: 00:11
Patient with high blood pressure during this ER visit?: No
Discharge Problem:
Migraine
Instructions: Migraines (DC)
Prescriptions:
No Action
oxycodone 5 MG tablet
5 mg PO Q6HPRN PRN (Reason: severe pain) 4 Days Qty: 12 0RF
pantoprazole [Protonix] 40 mg tablet,delayed release (DR/EC)
40 mg PO BID Qty: 60 0RF
Rx Instructions:
Please take 30 minutes prior to eating or drinking anything in the morning.
sucralfate [Carafate] 100 mg/mL suspension
10 ml PO QID Qty: 400 0RF
methylprednisolone [Medrol (Delfino)] 4 mg tablets,dose pack
4 mg PO DIRECTED Qty: 21 0RF
diazepam [Valium] 5 mg tablet
5 mg PO BID PRN (Reason: muscle spasm) Qty: 8 0RF
prednisone 20 mg tablet
40 mg PO DAILY Qty: 6 0RF
azithromycin [Zithromax] 250 mg tablet
250 mg PO DAILY Qty: 4 0RF
Referrals:
Jaye Mohamud MD [Family Provider, Internal Medicine]
Interventions
Interventions:
*Risk Screen - Suicide Last Done: 04/05/25 19:28
*General Assessment Last Done: 04/05/25 19:28
*Neglect/Abuse Screening Last Done: 04/05/25 19:28
*ED- Fall Risk Assessment Last Done: 04/05/25 19:28
*ED COVID-19 Vaccine History Last Done: 04/05/25 19:28
*ED Influenza Vaccine History Last Done: 04/05/25 19:28
*Nursing Disposition Last Done: 04/06/25 00:19
ED- Neurological Assessment Last Done: 04/05/25 22:14
Discharge Date and Time
Discharge Date/Time: 04/06/25 00:21
Print Language: CHILEAN
[2025-04-06 00:15] VITALS: BP 91/67
== END 2025-04-06 00:21 | disposition home or self-care (01) ==
LOC: EMR 19:22
PROVIDERS: EMERGENCY PHYSICIAN Emergency Medicine; FAMILY PHYSICIAN Emergency Medicine
DX: G43.909 Migraine, unspecified, not intractable, without status migrainosus (principal); J45.909 Unspecified asthma, uncomplicated; M79.7 Fibromyalgia; Z87.19 Personal history of other diseases of the digestive system; Z90.49 Acquired absence of other specified parts of digestive tract
CPT/HCPCS: 96374; 96375; 96361; 99284

== ENCOUNTER 2025-04-27 13:49 | Emergency (ER) | payer MEDICARE, SELFPAY ==
[2025-04-27 13:56] VITALS: BP 123/81
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
[2025-04-27 14:57] VITALS: BMI 22.5
[2025-04-27] MEDS: REGLAN 10 MG IV (15:02)
[2025-04-27] MEDS: TORADOL 15 MG IV (15:04)
[2025-04-27] MEDS: BENADRYL 50 MG IV (15:04)
== END 2025-04-27 16:51 | disposition home or self-care (01) ==
LOC: EMR 13:49
PROVIDERS: EMERGENCY PHYSICIAN Emergency Medicine; FAMILY PHYSICIAN Emergency Medicine
DX: G43.909 Migraine, unspecified, not intractable, without status migrainosus (principal); J45.909 Unspecified asthma, uncomplicated; M79.7 Fibromyalgia; Z87.19 Personal history of other diseases of the digestive system; Z90.49 Acquired absence of other specified parts of digestive tract; Z87.442 Personal history of urinary calculi
CPT/HCPCS: 96374; 96375; 99284